=== PATIENT | male | born 1960 | race Caucasian/White ===

== ENCOUNTER 2025-03-17 10:57 | Emergency (ER) | payer MEDICARE ==
[2025-03-17] MEDS ORDERED: cloNIDine 0.1 MG TAB ONE (11:38)
[2025-03-17 12:36] LABS: #Basophils 0.04 10x3/uL (0.0-0.2); #Eosinophils 0.20 10x3/uL (0.0-0.5); #Monocytes 0.40 10x3/uL (0.0-1.1); #Neutrophils 4.56 10x3/uL (1.5-8.4); %Basophils 0.6 % (0.0-2.0); %Eosinophils 3.0 % (0.0-6.0); %Lymphocytes 21.4 % (18.0-47.0); %Monocytes 6.0 % (0.0-10.0); %Neutrophils 68.4 % (40.0-75.0); Hematocrit 40.9 % (38.8-50.0); Hemoglobin 13.3 g/dL (13.5-17.5); Mean Corpuscular Hemoglobin 29.4 pg (27.0-33.0); Mean Corpuscular Volume 90.5 fL (81.2-95.1); Platelet Count 257 10x3/uL (150-450); Red Blood Cell (RBC) Count 4.52 10x6/uL (4.32-5.72); White Blood Cell (WBC) Count 6.67 10x3/uL (3.5-10.5)
[2025-03-17 12:58] LABS: ALT (SGPT) 9 U/L (Less than 45); AST (SGOT) 15 U/L (11-34); Albumin 3.9 g/dL (3.1-4.5); Alkaline Phosphatase 61 U/L (40-110); Anion Gap 16 mmol/L (10-20); BUN (Urea Nitrogen) 20 mg/dL (8.4-25.7); Bilirubin, Total 0.7 mg/dL (0.3-1.2); Calc. Creatinine Clearance 0 mL/min (70-130); Calcium 9.3 mg/dL (7.8-10.44); Carbon Dioxide 25 mmol/L (23-31); Chloride 99 mmol/L (98-107); Globulin 3.4 g/dL (2.4-3.5); Glucose 116 mg/dL (80-115); Potassium 5.3 mmol/L (3.5-5.1); Sodium 135 mmol/L (136-145)
[2025-03-17 13:05] LABS: Troponin I Less than 0.010 ng/mL (< 0.028)
[2025-03-17] MEDS ORDERED: hydrALAZINE 20 MG/ML VIAL ONE (13:35)
== END 2025-03-17 15:11 | disposition home or self-care (01) ==
LOC: CSHERS 10:57
DX: I10 Essential (primary) hypertension (principal); E10.9 Type 1 diabetes mellitus without complications; Z79.4 Long term (current) use of insulin; J44.9 Chronic obstructive pulmonary disease, unspecified; F17.210 Nicotine dependence, cigarettes, uncomplicated; T46.5X6A Underdosing of other antihypertensive drugs, initial encounter
CPT/HCPCS: 80053; 84484; 85025; 93005; J0360; J2270; 36415; 96374; 96375

== ENCOUNTER 2025-03-18 00:25 | Emergency (ER) | payer MEDICARE | END 2025-03-18 02:00 | disposition home or self-care (01) | LOC: CSHERS 00:25 | DX: I95.1 Orthostatic hypotension (principal); E78.00 Pure hypercholesterolemia, unspecified; E10.9 Type 1 diabetes mellitus without complications; E03.9 Hypothyroidism, unspecified; K21.9 Gastro-esophageal reflux disease without esophagitis; J44.9 Chronic obstructive pulmonary disease, unspecified; F17.210 Nicotine dependence, cigarettes, uncomplicated; Z79.899 Other long term (current) drug therapy | CPT/HCPCS: 99284 ==